=== PATIENT | female | born 1950 | race Caucasian/White ===

== ENCOUNTER → 2018-05-28 | Day surgery (SDC) | payer MEDICARE, OTHER ==
[~2018-05-28] MED LIST: ALBUTEROL SULFATE 2.5 MG/3 ML NEBU. NEB PRN; ATROPINE 0.5 MG/5 ML DISP.SYRIN. IV PRN; CETI10TA22 PO; IV RINGERS SOLUTION,LACTATED 1,000 ML IV SCH; LIDO700A39 TP; LIDOCAINE 2% PF Vial for OR 5 ML VIAL. ONE; MULT1TAB52 PO; MUPI22OI2 TP; NALOXONE 0.4 MG/ML VIAL. IV PRN; ONDANSETRON PF 4 MG/2 ML VIAL. IV PRN; PROPOFOL 40 ML IV ONE; ROPI0.5T2 PO; diphenhydrAMINE 50 MG/ML VIAL IV PRN
[2018-05-28 12:49] VITALS: BP 129/78
== END | disposition home or self-care (01) ==
LOC: SURG 11:12
PROVIDERS: ATTEND Surgery
DX: Z12.11 Encounter for screening for malignant neoplasm of colon (principal); K57.30 Diverticulosis of large intestine without perforation or abscess without bleeding; I10 Essential (primary) hypertension; Z88.0 Allergy status to penicillin; Z88.2 Allergy status to sulfonamides; Z79.899 Other long term (current) drug therapy; Z98.890 Other specified postprocedural states; Z72.89 Other problems related to lifestyle
CPT/HCPCS: G0121; J2704; 45378; J2001

== ENCOUNTER 2018-06-07 11:33 | Emergency (ER) | payer MEDICARE, OTHER ==
[~2018-06-07] VITALS: Ht 160 cm; Wt 86.2 kg
[~2018-06-07 11:33] MED LIST changes: -ALBUTEROL SULFATE 2.5 MG/3 ML NEBU. NEB PRN; -ATROPINE 0.5 MG/5 ML DISP.SYRIN. IV PRN; -IV RINGERS SOLUTION,LACTATED 1,000 ML IV SCH; -LIDOCAINE 2% PF Vial for OR 5 ML VIAL. ONE; -MUPI22OI2 TP; -NALOXONE 0.4 MG/ML VIAL. IV PRN; -ONDANSETRON PF 4 MG/2 ML VIAL. IV PRN; -PROPOFOL 40 ML IV ONE; -diphenhydrAMINE 50 MG/ML VIAL IV PRN
[2018-06-07 11:42] VITALS: BP 160/92
[2018-06-07] MEDS ORDERED: DEXAMETHASONE SOD PHOS 10 MG/ML VIAL ONE (12:03)
[2018-06-07] MEDS ORDERED: DEXAMETHASONE SOD PHOS 10 MG/ML VIAL IM ONE (12:30)
[2018-06-07] MEDS ORDERED: MUPI22OI2 TP (12:33)
--- NOTE | 2018-06-07 12:33 | PHYS DOC ---
Past History Past Medical History: Other Past Surgical History: , Knee Replacement Alcohol Use: None Drug Use: None Adult General Chief Complaint Chief Complaint: SKIN PROBLEM HPI HPI Patient is a 68 year old female who presents with complaint of rash. The patient states that she started having rash to the upper and lower extremities 4 days ago. Was seen at that time and diagnosed with poison ian. States that she was outdoors 2 days prior to onset of symptoms. Was started on prednisone taper. Patient states that after 3 days of treatment she has not noticed much improvement. Notes that she has had blistering along the inner thighs. Has been using calamine lotion for treatment of symptoms. Denies any pain, fever, or nausea. The patient states that she thinks she may need to have a steroid injection and thus came to the emergency department for further evaluation. Review of Systems Review of Systems Constitutional: Denies fever or chills [] Eyes: Denies change in visual acuity, redness, or eye pain [] HENT: Denies nasal congestion or sore throat [] Respiratory: Denies cough or shortness of breath [] Cardiovascular: No additional information not addressed in HPI [] GI: Denies abdominal pain, nausea, vomiting, bloody stools or diarrhea [] : Denies dysuria or hematuria [] Musculoskeletal: Denies back pain or joint pain [] Integument: Skin rash[] Neurologic: Denies headache, focal weakness or sensory changes [] All other systems were reviewed and found to be within normal limits, except as documented in this note. Current Medications Current Medications Current Medications Medications (Trade) Dose Ordered Sig/[facility] Start Time Stop Time Status Last Admin Dose Admin Dexamethasone Sodium Phosphate (Decadron) 8 mg 1X ONCE 06/07/18 12:15 06/07/18 12:16 UNV Allergies Allergies Allergies Coded Allergies Type Severity Reaction Last Updated Verified Penicillins Allergy Unknown 04/23/18 Yes Sulfa (Sulfonamide Antibiotics) Allergy Unknown 04/23/18 Yes Physical Exam Physical Exam Constitutional: Well developed, well nourished, no acute distress, non-toxic appearance. [] HENT: Normocephalic, atraumatic, bilateral external ears normal, oropharynx moist, no oral exudates, nose normal. [] Eyes: PERRLA, EOMI, conjunctiva normal, no discharge. [] Neck: Normal range of motion, no tenderness, supple, no stridor. [] Cardiovascular:Heart rate regular rhythm, no murmur [] Lungs & Thorax: Bilateral breath sounds clear to auscultation [] Abdomen: Bowel sounds normal, soft, no tenderness, no masses, no pulsatile masses. [] Skin: Warm, dry, multiple linear crops of vesicles along bilateral inner thighs and bilateral forearms, small patches of honey-colored crusting along vesicles of inner thighs bilaterally. [] Back: No tenderness, no CVA tenderness. [] Extremities: No tenderness, no cyanosis, no clubbing, ROM intact, no edema. [] Neurologic: Alert and oriented X 3, normal motor function, normal sensory function, no focal deficits noted. [] Current Patient Data Vital Signs Vital Signs Date Time Temp Pulse Resp B/P (MAP) Pulse Ox O2 Delivery O2 Flow Rate FiO2 06/07/18 11:42 98.0 78 16 97 Room Air Lab Results Not performed EKG EKG Not performed[] Radiology/Procedures Radiology/Procedures Not performed[] Course & Med Decision Making Course & Med Decision Making Pertinent Labs and Imaging studies reviewed. (See chart for details) The patient was given IM Decadron 8 mg. Patient also prescribed Bactroban to apply to areas of honey-colored crusting to prevent possible infection. Advised to continue with steroid taper and use of oral antihistamine. Advised follow-up in 5 days with primary doctor if symptoms are not improving and return to emergency department for any worsening symptoms. Patient was understanding and in agreement with treatment plan.[] Dragon Disclaimer Dragon Disclaimer This electronic medical record was generated, in whole or in part, using a voice recognition dictation system. Departure Departure: Impression: Primary Impression: Contact dermatitis Disposition: 01 HOME, SELF-CARE Condition: STABLE Referrals: JOSE D FAUST (PCP) Patient Instructions: Contact Dermatitis Additional Instructions: Follow-up with your primary doctor in 5 days for reevaluation. Return to the emergency department for any worsening symptoms. Scripts Mupirocin (MUPIROCIN) 22 Gm Oint...g. 1 SHANTEL TP BID for 10 Days, #22 GM Prov: MARIELOS QUIROZ MD 06/07/18 Problem Qualifiers Primary Impression: Contact dermatitis Contact dermatitis type: allergic Contact dermatitis trigger: non-food plants Qualified Codes: L23.7 - Allergic contact dermatitis due to plants, except food MARIELOS QUIROZ MD Jun 07, 2018 12:33
== END 2018-06-07 12:37 | disposition home or self-care (01) ==
LOC: ER 11:33
DX: L23.7 Allergic contact dermatitis due to plants, except food (principal); Z88.0 Allergy status to penicillin; Z88.2 Allergy status to sulfonamides
CPT/HCPCS: 96372; 99283; J1100

== ENCOUNTER 2020-03-18 13:55 | Emergency (ER) | payer MEDICARE, OTHER ==
[~2020-03-18] VITALS: Ht 162.6 cm; Wt 81.0 kg
[~2020-03-18 13:55] MED LIST changes: -CETI10TA22 PO; +CETI10TA74 PO; +LIDO700A21 TP; -LIDO700A39 TP; +MULT-445 PO; -MULT1TAB52 PO; +MUPI22OI2 TP; -ROPI0.5T2 PO; +ROPI0.5T4 PO
--- NOTE | 2020-03-18 14:02 | PHYS DOC ---
Past History Past Medical History: Other Past Surgical History: , Knee Replacement Alcohol Use: None Drug Use: None General Adult EDM: Chief Complaint: LOWER EXT PAIN HPI: HPI: Patient is a 70 year old female that presents to the ED with comfirmed diagnosis of left leg DVT. Patient had a tele visit with her PCP today, for 3 weeks of left lower leg swelling. She was sent to diagnostic imaging to have an outpatient US performed, it showed "Extensive deep venous strucutres identified from the external iliac vein down through the femoral vein to the popliteal vein. Showed minimal flow around or within the portions of the clot identified but is mostly occlusive." She stated that 3 weeks ago she noted some swelling to her left thigh, with some aching pain. Today she mostly has "soreness" in her left calf. She is still able to ambulate and exercise. She denies any CP, SOB, or pain with deep inspiration. No other complaints or symptoms at this time. Review of Systems: Review of Systems: Constitutional: Denies fever or chills Eyes: Denies redness or eye pain HENT: Denies nasal congestion or sore throat Respiratory: Denies cough or shortness of breath Cardiovascular: Denies chest pain or palpitations GI: Denies abdominal pain, nausea, or vomiting : Denies dysuria or hematuria Musculoskeletal: Denies back pain or joint pain. Left lower extremity pain and swelling. Integument: Denies rash or skin lesions Neurologic: Denies headache, focal weakness or sensory changes Complete systems were reviewed and found to be within normal limits, except as documented in this note. Allergies: Allergies: Allergies Coded Allergies Type Severity Reaction Last Updated Verified Penicillins Allergy Unknown 04/23/18 Yes Sulfa (Sulfonamide Antibiotics) Allergy Unknown 04/23/18 Yes Physical Exam: PE: Constitutional: Well developed, well nourished, no acute distress, non-toxic appearance HENT: Normocephalic, atraumatic Eyes: PERRL, EOMI, conjunctiva normal, no discharge Neck: Normal range of motion, no tenderness, supple Lungs & Thorax: No respiratory distress, equal chest rise and fall Abdomen: Soft, no tenderness Skin: Warm, dry, no erythema, no rash Back: No tenderness, no CVA tenderness Extremities: ROM intact. Tenderness to palpation to left calf, with moderate swelling to left calf noted when compared to the right. Neurologic: Alert and oriented X 3, normal motor function, normal sensory function, no focal deficits noted Psychologic: Affect normal, judgment normal Course & Med Decision Making: Course & Med Decision Making Patient is a 70 year old female that presents to the ED for a confirmed DVT. Discussed case with Dr. Lynn (partner with PCP) regarding results, who is in agreement with plan to treat with Xarelto. Patient stable for discharge with outpatient follow-up with PCP. Discussed findings and plan with patient, who acknowledges understanding and agreement. Dragon Disclaimer: Dragon Disclaimer: This electronic medical record was generated, in whole or in part, using a voice recognition dictation system. Departure Departure: Impression: Primary Impression: DVT (deep venous thrombosis) Qualified Codes: I82.4Y2 - Acute embolism and thrombosis of unspecified deep veins of left proximal lower extremity Disposition: 01 DC HOME SELF CARE/HOMELESS Condition: STABLE Referrals: JOSE D FAUST (PCP) Patient Instructions: Deep Vein Thrombosis Additional Instructions: Please follow closely with your primary physician, they have been notified. They will expect your call. Scripts Rivaroxaban (XARELTO) 15 Mg Tablet 1 TAB PO BID for DVT for 21 Days, #42 TAB 0 Refills Prior to completion of this prescription please notify family physician for continuation of treatment. Prov: SEJAL SHEPPARD DO 03/18/20 SEJAL SHEPPARD DO Mar 18, 2020 14:02
[2020-03-18 14:36] VITALS: BP 176/94
[2020-03-18] MEDS ORDERED: RIVA15TA PO (14:39)
[2020-03-18] MEDS ORDERED: RIVAROXABAN 15 MG TABLET. PO ONE (15:00)
== END 2020-03-18 14:59 | disposition home or self-care (01) ==
LOC: ER 13:55
DX: I82.4Y2 Acute embolism and thrombosis of unspecified deep veins of left proximal lower extremity (principal)
CPT/HCPCS: 99283

== ENCOUNTER 2020-04-07 17:13 | Emergency (ER) | payer MEDICARE, OTHER ==
[~2020-04-07] VITALS: Ht 162.6 cm; Wt 88.9 kg
[~2020-04-07 17:13] MED LIST changes: +RIVA15TA PO
--- NOTE | 2020-04-07 18:07 | PHYS DOC ---
Past History Past Medical History: No Pertinent History (YIN XIAO APRN) Past Surgical History: No Surgical History (YIN XIAO APRN) Alcohol Use: None Drug Use: None (YIN XIAO APRN) General Adult EDM: Chief Complaint: LOWER EXTREMITY SWELLING HPI: HPI: Patient is a 70-year-old female who presents with left lower calf pain and swelling. Patient states that she was seen here on March 18 and diagnosed with a DVT. Patient was started on Xarelto. Patient states that today she started having pain, redness, and swelling all of a sudden. Patient called her PCP who was told to come back to the emergency room. Denies shortness of breath or CP. (YIN XIAO APRN) Review of Systems: Review of Systems: Constitutional: Denies fever or chills Eyes: Denies change in visual acuity HENT: Denies nasal congestion or sore throat Respiratory: Denies cough or shortness of breath Cardiovascular: Denies chest pain or edema GI: Denies abdominal pain, nausea, vomiting, bloody stools or diarrhea : Denies dysuria Musculoskeletal: Denies back pain or joint pain Integument: Red, swelling to left calf Neurologic: Denies headache, focal weakness or sensory changes Endocrine: Denies polyuria or polydipsia Lymphatic: Denies swollen glands Psychiatric: Denies depression or anxiety (YIN XIAO APRN) Allergies: Allergies: Allergies Coded Allergies Type Severity Reaction Last Updated Verified Penicillins Allergy Unknown 04/23/18 Yes Sulfa (Sulfonamide Antibiotics) Allergy Unknown 04/23/18 Yes (YIN XIAO APRN) Physical Exam: PE: Constitutional: Well developed, well nourished, no acute distress, non-toxic appearance. [] HENT: Normocephalic, atraumatic, bilateral external ears normal, oropharynx moist, no oral exudates, nose normal. [] Eyes: PERRLA, EOMI, conjunctiva normal, no discharge. [] Neck: Normal range of motion, no tenderness, supple, no stridor. [] Cardiovascular:Heart rate regular rhythm, no murmur [] Lungs & Thorax: Bilateral breath sounds clear to auscultation [] Abdomen: Bowel sounds normal, soft, no tenderness, no masses, no pulsatile masses. [] Skin: Red, swelling, warm left calf Back: No tenderness, no CVA tenderness. [] Extremities: Left calf tenderness, no cyanosis, no clubbing, ROM intact, swelling, pedal pulses intact. Neurologic: Alert and oriented X 3, normal motor function, normal sensory function, no focal deficits noted. [] Psychologic: Affect normal, judgement normal, mood normal. [] (YIN XIAO APRN) EKG: EKG: [] (YIN XIAO APRN) Radiology/Procedures: Radiology/Procedures: []Left lower extremity venous duplex Doppler ultrasound HISTORY: Left leg edema, redness and pain. FINDINGS: No DVT by grayscale sonography with compressibility, patent color Doppler blood flow and augmentation of blood flow the left common femoral vein, profunda femoral vein, superficial femoral vein and popliteal vein. No DVT evident of the left posterior tibial peroneal veins in the calf with patent color Doppler blood flow. IMPRESSION: Negative left leg for DVT. Electronically signed by: Frederick Cleaning MD (04/07/2020 7:13 PM) [facility] (YIN XIAO APRN) Heart Score: Risk Factors: Risk Factors: DM, Current or recent (<one month) smoker, HTN, HLP, family history of CAD, obesity. Risk Scores: Score 0 - 3: 2.5% MACE over next 6 weeks - Discharge Home Score 4 - 6: 20.3% MACE over next 6 weeks - Admit for Clinical Observation Score 7 - 10: 72.7% MACE over next 6 weeks - Early Invasive Strategies (YIN XIAO APRN) Course & Med Decision Making: Course & Med Decision Making Pertinent Labs and Imaging studies reviewed. (See chart for details) []Patient is a 70-year-old female who presents with left lower calf pain and swelling. Patient states that she was seen here on March 18 and diagnosed with a DVT. Patient was started on Xarelto. Patient states that today she started having pain, redness, and swelling again. Patient called her PCP who was told to come back to the emergency room. Ultrasound ordered for left calf. Ultrasound is negative for DVT of left leg. Still denying pain, shortness of breath. Pedal pulses intact, cap refill less than 3 seconds. Patient is discharged home with her and will follow up with his PCP in the morning for further evaluation. Patient instructed to return to the emergency room with chest pain, shortness of breath. (YIN XIAO APRN) Course & Med Decision Making Did not see or evaluate patient. Agree with HOT PATCHER's work-up and disposition per note. (JACLYN SARMIENTO MD) Dany Disclaimer: Dany Disclaimer: This electronic medical record was generated, in whole or in part, using a voice recognition dictation system. (YIN XIAO APRN) Departure Departure: Impression: Primary Impression: Pain of left calf Disposition: 01 DC HOME SELF CARE/HOMELESS Condition: GOOD Referrals: JOSE D FAUST (PCP) Additional Instructions: You were seen in the emergency room for pain to your left calf. Ultrasound was negative for DVT. Please take ibuprofen or Tylenol at home for pain. Please call your PCP in the morning for follow-up. Return to the emergency room with chest pain, shortness of breath or worsening symptoms. EMERGENCY DEPARTMENT GENERAL DISCHARGE INSTRUCTIONS Thank you for coming to [facility] (ED) today and trusting us with you care. We trust that you had a positivie experience in our Emergency Department. If you wish to speak to the department management, you may call the director at [phone]. YOUR FOLLOW UP INSTRUCTIONS ARE FOLLOWS: 1. Do you have a private Doctor? If you do not have a private doctor, please ask for a resource list of physicians or clinics that may be able to assist you with follow up care. 2. The Emergency Physician has interpreted your x-rays. The X-Ray specialist will also review them. If there is a change in the findings, you will be notified in 48 hours when at all possible. 3. A lab test or culture has been done, your results will be reviewed and you will be notified if you need a change in treatment. ADDITIONAL INSTRUCTIONS AND INFORMATION: 1. Your care today has been supervised by a physician who is specially trained in emergency care. Many problems require more than one evaluation for a complete diagnosis and treatment. We recommend that you schedule your follow up appointment as recommended to ensure complete treatment of you illness or injury. If you are unable to obtain follow up care and continue to have a problem, or if your condition worsens, we recommend that you return to the ED. 2. We are not able to safely determine your condition over the phone nor are we able to give sound medical advice over the phone. For these safety reasons, if you call for medical advice we will ask you to come to the ED for further evaluation. 3. If you have any questions regarding these discharge instructions please call the ED at [phone]. SAFETY INFORMATION: In the interest of safety, wellness, and injury prevention; we encourage you to wear your sealbelt, if you smoke; quite smoking, and we encourage family to use a prote ctive helmet for bicycling and other sporting events that present an increased risk for head injury. IF YOUR SYMPTOMS WORSEN OR NEW SYMPTOMS DEVELOP, OR YOU HAVE CONCERNS ABOUT YOUR CONDITION; OR IF YOUR CONDITION WORSENS WHILE YOU ARE WAITING FOR YOUR FOLLOW UP APPOINTMENT; EITHER CONTACT YOUR PRIMARY CARE DOCTOR, THE PHYSICIAN WHOSE NAME AND NUMBER YOU WERE GIVEN, OR RETURN TO THE ED IMMEDIATELY. YIN XIAO APRN Apr 07, 2020 18:07 JACLYN SARMIENTO MD Apr 09, 2020 01:56
[2020-04-07 18:12] VITALS: BP 144/85
--- NOTE | 2020-04-07 19:16 | RAD ---
Left lower extremity venous duplex Doppler ultrasound HISTORY: Left leg edema, redness and pain. FINDINGS: No DVT by grayscale sonography with compressibility, patent color Doppler blood flow and au gmentation of blood flow the left common femoral vein, profunda femoral vein, superficial femoral vei n and popliteal vein. No DVT evident of the left posterior tibial peroneal veins in the calf with pat ent color Doppler blood flow. IMPRESSION: Negative left leg for DVT. Electronically signed by: Frederick Cleaning MD (04/07/2020 7:13 PM) [facility]
[2020-04-07 20:09] LABS: BASO # 0.1 x10^3/uL (0.0-0.2); BASO % 1 % (0-3); EOS # 0.4 x10^3/uL (0.0-0.7); EOS % 4 % (0-3); HEMATOCRIT 36.5 % (36.0-47.0); HEMOGLOBIN 11.8 g/dL (12.0-15.5); LYMPH % 29 % (24-48); MEAN CORPUSCULAR HEMOGLOBIN 28 pg (25-35); MEAN CORPUSCULAR HGB CONC 32 g/dL (31-37); MEAN CORPUSCULAR VOLUME 86 fL (79-100); MONO # 0.8 x10^3/uL (0.0-1.1); MONO % 7 % (0-9); NEUT # 6.1 x10^3uL (1.8-7.7); NEUT % 59 % (31-73); PLATELET COUNT 261 x10^3/uL (140-400); RED BLOOD COUNT 4.25 x10^6/uL (3.50-5.40); RED CELL DISTRIBUTION WIDTH 14.8 % (11.5-14.5); WHITE BLOOD COUNT 10.3 x10^3/uL (4.0-11.0)
[2020-04-07 20:16] LABS: CALCIUM 9.3 mg/dL (8.5-10.1); CREATININE 0.8 mg/dL (0.6-1.0); GFR 71.1; POTASSIUM 4.2 mmol/L (3.5-5.1)
[2020-04-07 20:22] LABS: ALBUMIN 3.6 g/dL (3.4-5.0); ALBUMIN/GLOBULIN RATIO 1.2 (1.0-1.7); TOTAL BILIRUBIN 0.3 mg/dL (0.2-1.0); TOTAL PROTEIN 6.6 g/dL (6.4-8.2)
== END 2020-04-07 20:10 | disposition home or self-care (01) ==
LOC: ER 17:13
DX: M79.662 Pain in left lower leg (principal); R22.42 Localized swelling, mass and lump, left lower limb; Z88.0 Allergy status to penicillin; Z88.2 Allergy status to sulfonamides
CPT/HCPCS: 36415; 80053; 85025; 93971; 99284